=== PATIENT | female | born 1990 | race Caucasian/White ===

== ENCOUNTER 2024-04-25 09:17 | Emergency (ER) | payer MEDICAID, SELFPAY ==
[2024-04-25 09:25] VITALS: BP 118/81; PULSE 87; RESP 18; TEMP 37.2; O2SAT 98; BMI 28.3
--- NOTE | 2024-04-25 09:29 | XR_ITS ---
Examination: Right knee 4 views Technique: AP oblique lateral axial right knee 4 views Exam date and time: April 25, 2024 0941 hrs. Indications: Patient fell one week ago with injury to the knee, knee pain Findings: No acute fracture No dislocation No foreign body Impression: No acute fracture
[2024-04-25] MEDS: KETOROLAC INJ 30 MG/ML VIAL IM (09:49)
--- NOTE | 2024-04-25 10:34 | EDNOTE_ITS ---
<Statement entered by Nora Christopher MD - 04/26/24 11:46> As co-signing physician, I was present and available for consult prn. I concur with the plan and care as documented by the midlevel provider. Lower Extremity Injury RME/HPI General Chief Complaint: Extremity Injury, Lower Stated Complaint: right knee pain / swelling Time Seen by Provider: 04/25/24 09:19 Arrival date/time: 04/25/24 09:17 33-year-old female with prior knee injury presents emergency department with complaints of injuring her right knee Limitations: no limitations Related Data Home Medications ?Medication ?Instructions ?Recorded ?Confirmed prenat.vits,roberto,[id number] 1 tab PO QDAY 04/24/18 Previous Rx's ?Medication ?Instructions ?Recorded acetaminophen 650 mg 650 mg PO Q8H PRN fever or pain 07/05/18 tablet,extended release #30 tabs amoxicillin 500 mg capsule 500 mg PO BID #20 caps 07/05/18 ibuprofen 600 mg tablet 600 mg PO Q6H #30 tabs 04/25/24 Allergies Allergy/AdvReac Type Severity Reaction Status Date / Time No Known Allergies Allergy Verified 04/25/24 09:18 Review of Systems Review of Systems Systems Reviewed: All systems reviewed, normal except as documented Constitutional Constitutional: Reports system reviewed and no additional complaints, except as documented, Denies fever(s) and Denies headache(s) Eyes Eyes: Reports system reviewed and no additional complaints, except as documented and Denies blurry vision ENT Ears, Nose, Mouth, and Throat: Reports system reviewed and no additional com plaints, except as documented, Denies headache(s), Denies nasal congestion and Denies nasal discharge Cardiovascular Cardiovascular: Reports system reviewed and no additional complaints, except as documented, Denies chest pain and Denies dyspnea Respiratory Respiratory: Reports system reviewed and no additional complaints, except as documented, Denies chest congestion, Denies cough and Denies dyspnea Gastrointestinal Gastrointestinal: Reports system reviewed and no additional complaints, except as documented and Denies abdominal pain Musculoskeletal Musculoskeletal: Reports system reviewed and no additional complaints, except as documented, Reports arthralgias, Denies numbness, Reports stiffness and Denies tingling Integumentary/Breasts Skin/Breast: Reports system reviewed and no additional complaints, except as documented and Denies rash Neurologic Neurologic: Reports system reviewed and no additional complaints, except as documented, Reports as per HPI, Denies headache(s), Denies numbness and Denies tingling Past Medical History Past Medical History CARDIAC: Negative Congestive Heart Failure RESPIRATORY: Negative Chronic Obstructive Pulmonary Disease (COPD) GENITOURINARY: Negative Renal Disease ENDOCRINE: Negative Diabetes Mellitus Type 1 or Diabetes Mellitus Type 2 Social History SMOKING STATUS: Never smoker ED Exam General Limitations: Present no limitations General appearance: Present alert and in no apparent distress Head Head exam: Present atraumatic Eye Eye exam: Present normal appearance, PERRL and EOMI; Absent conjunctival injection ENT ENT exam: Present normal exam, normal oropharynx and mucous membranes moist Neck Neck exam: Present normal inspection, full ROM and trachea midline Chest Chest inspection: Present normal inspection and symmetric chest wall rise Respiratory Respiratory exam: Present normal lung sounds bilaterally; Absent respiratory distress Cardiovascular Cardiovascular exam: Present regular rate, normal rhythm and normal heart sounds Abdominal Exam Abdominal exam: Present soft and normal bowel sounds; Absent distention, tenderness, guarding, rebound or rigidity Extremities Exam Extremities exam: Present full ROM, tenderness (Right knee pain), normal capillary refill and joint swelling; Absent pedal edema or calf tenderness Back Exam Back exam: Present normal inspection and full ROM Neurological Exam Neurological exam: Present alert, oriented X3 and CN II-XII intact Psychiatric Psychiatric exam: Present normal affect and normal mood Skin Skin exam: Present warm, dry, intact and normal color Course Quality Measures none Orders Category Date Time Status XR knee comp RT 4V Stat Exams 04/25/24 09:29 Completed Ketorolac Inj [Toradol Inj] Med 04/25/24 09:30 Discontinued 30 mg IM X1 ONE Vital Signs Vital signs: Vital Signs Temperature 98.9 F 04/25/24 09:25 Pulse Rate 87 04/25/24 09:25 Respiratory Rate 18 04/25/24 09:25 Blood Pressure 118/81 04/25/24 09:25 Pulse Oximetry (%) 98 04/25/24 09:25 Oxygen Delivery Method Room Air 04/25/24 09:25 O2 saturation 98% on room air within normal limit Extremity Injury, Lower MDM Narrative MDM Narrative:: 33-year-old female with prior knee injury presents emergency department with complaints of injuring her right knee On exam patient is mild tenderness of the right knee X-ray of right knee obtained no acute emergent findings noted Explained to the patient she needs to follow with department care doctor and request a MRI for further evaluation for possible ligamentous tear Patient discharged home in no distress to follow-up with primary care doctor in the next 24 to 48 hours and for any worsening symptoms to return to the ER immediately Patient data External records reviewed:: [facility] previous records Clinical information provided by:: patient Social determinants that could affect healthcare access:: none Patient has the following chronic illnesses:: See history How is presenting disease/condition affected by chronic disease/condition?: uneffected by Evaluation data The following diagnostics were reviewed and interpreted by me:: radiology exam(s) Lab and/or radiology exams considered but not ordered:: Radiology obtain Interpretation Summary: Reviewed by me Medications / Prescriptions Medications or Prescriptions considered but not ordered:: Given Medication administrations:: Medication Administration History Discontinued Medications Ketorolac Tromethamine (Ketorolac Inj 30 Mg/Ml Vial) 30 mg IM X1 ONE Stop: 04/25/24 09:31 Last Admin: 04/25/24 09:49 Dose: 30 mg Documented By: [facility] Comments: scanner broken Given Consultations Consultation(s) initiated? (list below): No Diagnosis Extremity Injury, Lower Differential Diagnosis: acute internal derangement of knee and other (Knee sprain, knee fracture) Most likely diagnosis given after review of the tests above:: Knee sprain Admission Indicated Admission indicated?: not indicated Admission Request Was there a request for admission?: No Disposition Plan Disposition Plan: Discharge Discharge Attestation Discharge Attestation: The patient and all family members were given an opportunity to ask questions and understood the discharge instructions. Discharge instructions specifically effects, indications for sooner follow up or return to the emergency department, and the expected course of current diagnosis. Patient condition: Stable Discharge Plan Plan Patient Disposition: HOME (Self Care) Disposition Comment: Stable Prescriptions/Referrals Prescriptions/Med Rec: New ibuprofen 600 mg tablet 600 mg PO Q6H Qty: 30 0RF No Action prenat.vits,roberto,[id number] tablet 1 tab PO QDAY acetaminophen 650 mg tablet extended release 650 mg PO Q8H PRN (Reason: fever or pain) Qty: 30 0RF Rx Instructions: swallow whole; do not crush, chew, break, dissolve, cut, or open amoxicillin 500 mg capsule 500 mg PO BID Qty: 20 0RF Referrals: Houston Draper PA-C [Primary Care Provider] - 04/27/24 Problem List Clinical Impression: Acute pain of right knee Patient/Caregiver Discharge Instructions Education Materials: ED Arthralgia Additional Instructions: Please follow-up with her PCP if your pain persist she may need an MRI for further evaluation Print Language: Turkmen Stand Alone Forms: Maria Elena Award Info., Work/School Release, Patient Portal Info Letter PA/PHYSICIAN ADVISOR Supervising Physician PA/PHYSICIAN ADVISOR Supervising Physician: Dr. Christopher
== END 2024-04-25 10:45 | disposition home or self-care (01) ==
PROVIDERS: Emergency Provider Emergency Medicine; PCP Physician Assistant Medical
DX: M25.561 Pain in right knee (principal)
CPT/HCPCS: 73564; 96372; 99283; J1885

== ENCOUNTER 2024-07-15 10:50 | Emergency (ER) | payer MEDICAID, SELFPAY ==
--- NOTE | 2024-07-15 11:27 | EDNOTE_ITS ---
ED Headache RME/HPI General Chief Complaint: Headache Stated Complaint: MIGRAINE X3 DAYS Time Seen by Provider: 07/15/24 11:00 Source: patient Arrival date/time: 07/15/24 10:50 Mode of arrival: ambulatory Limitations: no limitations RME / HPI RME / HPI Narrative: Dr. Mansifeld? Main ED Evaluation: 33-year-old female with a history of migraines since childhood, presenting to the Emergency Department with complaints of a recurrent migraine headache. The patient was evaluated at urgent care in [place] yesterday, where she received two injections for pain relief. She was advised to seek emergency care if her symptoms returned after the medication wore off. She now presents to the ED as her headache has recurred following initial symptom relief. She describes the headache as a stabbing pain localized to her temples and behind her eyes. She does not specify any associated aura, photophobia, phonophobia, or nausea/vomiting at this time. No reported recent trauma, fever, neck stiffness, or neurological deficits. Related Data Home Medications ?Medication ?Instructions ?Recorded ?Confirmed prenat.vits,roberto,[id number] 1 tab PO QDAY 04/24/18 Previous Rx's ?Medication ?Instructions ?Recorded acetaminophen 650 mg 650 mg PO Q8H PRN fever or p ain 07/05/18 tablet,extended release #30 tabs amoxicillin 500 mg capsule 500 mg PO BID #20 caps 09/18 ibuprofen 600 mg tablet 600 mg PO Q6H #30 tabs 04/25 Allergies Allergy/AdvReac Type Severity Reaction Status Date / Time No Known Allergies Allergy Verified 07/15/24 10:52 Review of Systems Review of Systems Systems Reviewed: All systems reviewed, normal except as documented Past Medical History Past Medical History CARDIAC: Negative Congestive Heart Failure RESPIRATORY: Negative Chronic Obstructive Pulmonary Disease (COPD) GENITOURINARY: Negative Renal Disease ENDOCRINE: Negative Diabetes Mellitus Type 1 or Diabetes Mellitus Type 2 Social History SMOKING STATUS: Current every day smoker ED Exam General Limitations: Present no limitations General appearance: Present alert and in no apparent distress Head Head exam: Present atraumatic Eye Eye exam: Present normal appearance, PERRL and EOMI; Absent conjunctival injection ENT ENT exam: Present normal exam, normal oropharynx and mucous membranes moist Neck Neck exam: Present normal inspection, full ROM and trachea midline Chest Chest inspection: Present normal inspection and symmetric chest wall rise Respiratory Respiratory exam: Present normal lung sounds bilaterally; Absent respiratory distress Cardiovascular Cardiovascular exam: Present regular rate, normal rhythm and normal heart sounds Abdominal Exam Abdominal exam: Present soft and normal bowel sounds; Absent distention, tenderness, guarding, rebound or rigidity Extremities Exam Extremities exam: Present full ROM, tenderness (Right knee pain), normal capillary refill and joint swelling; Absent pedal edema or calf tenderness Back Exam Back exam: Present normal inspection and full ROM Neurological Exam Neurological exam: Present alert, oriented X3 and CN II-XII intact Psychiatric Psychiatric exam: Present normal affect and normal mood Skin Skin exam: Present warm, dry, intact and normal color Course Quality Measures none Vital Signs Vital signs: Vital Signs Temperature 98.4 F 07/15/24 11:43 Pulse Rate 69 07/15/24 11:43 Respiratory Rate 18 07/15/24 11:43 Blood Pressure 113/63 07/15/24 11:43 Pulse Oximetry (%) 99 07/15/24 11:43 Oxygen Delivery Method Room Air 07/15/24 11:43 Headache MDM Narrative MDM Narrative:: Scribe Attestation: I, Sandee Paiz, am scribing for and in the presence of Dr. Mansfield. Provider Notation: Although this document has been carefully reviewed, there may still be some phonetic and other typographical errors. These errors are purely grammatical due to imperfections in the software program and should not be construed in any way to compromise the substance of the patient's medical care during this visit. Patient data External records reviewed:: [facility] previous records Clinical information provided by:: patient Social determinants that could affect healthcare access:: none Patient has the following chronic illnesses:: see PMH How is presenting disease/condition affected by chronic disease/condition?: uneffected by Evaluation data The following diagnostics were reviewed and interpreted by me:: other (specify) (na) Lab and/or radiology exams considered but not ordered:: na Interpretation Summary: na Medications / Prescriptions Medications or Prescriptions considered but not ordered:: na Medication administrations:: na Consultations Consultation(s) initiated? (list below): No Diagnosis Differential diagnosis headache: migraine, headache and sinusitis Most likely diagnosis given after review of the tests above:: Tension headache TMJ syndrome Admission Indicated Admission indicated?: not indicated Admission Request Was there a request for admission?: No Disposition Plan Disposition Plan: Discharge Discharge Attestation Discharge Attestation: The patient and all family members were given an opportunity to ask questions and understood the discharge instructions. Discharge instructions specifically effects, indications for sooner follow up or return to the emergency department, and the expected course of current diagnosis. Patient condition: Stable Discharge Plan Plan Patient Disposition: HOME (Self Care) Patient condition on transfer: Stable Prescriptions/Referrals Prescriptions/Med Rec: No Action prenat.vits,roberto,[id number] tablet 1 tab PO QDAY acetaminophen 650 mg tablet extended release 650 mg PO Q8H PRN (Reason: fever or pain) Qty: 30 0RF Rx Instructions: swallow whole; do not crush, chew, break, dissolve, cut, or open amoxicillin 500 mg capsule 500 mg PO BID Qty: 20 0RF ibuprofen 600 mg tablet 600 mg PO Q6H Qty: 30 0RF Problem List Clinical Impression: Tension headache, TMJ syndrome Patient/Caregiver Discharge Instructions Print Language: Prydeinig Stand Alone Forms: Maria Elena Award Info., Patient Portal Info Letter
[2024-07-15 11:43] VITALS: BP 113/63; PULSE 69; RESP 18; TEMP 36.9; O2SAT 99; BMI 25.9
[2024-07-15] MEDS: KETOROLAC INJ 60 MG/2 ML VIAL 30 MG IM (14:44)
== END 2024-07-15 14:47 | disposition home or self-care (01) ==
LOC: SERX 12:32
PROVIDERS: Emergency Provider Family Medicine; PCP Physician Assistant Medical
DX: G44.209 Tension-type headache, unspecified, not intractable (principal); M26.609 Unspecified temporomandibular joint disorder, unspecified side
CPT/HCPCS: 96372; 99283; J1885

== ENCOUNTER 2024-09-13 06:21 | Emergency (ER) | payer MEDICAID, SELFPAY ==
[2024-09-13 06:23] VITALS: BMI 27.2
[2024-09-13 06:34] VITALS: BP 122/87; PULSE 102; RESP 17; TEMP 37.2; O2SAT 96
--- NOTE | 2024-09-13 06:42 | EDNOTE_ITS ---
<Statement entered by Nora Christopher MD - 09/13/24 09:00> As co-signing physician, I was present and available for consult prn. I concur with the plan and care as documented by the midlevel provider. Upper Respiratory Inf. RME/HPI General Chief Complaint: Fever Stated Complaint: FEVER BODY ACHES Time Seen by Provider: 09/13/24 06:31 Arrival date/time: 09/13/24 06:21 33-year-old female presents emergency department today for complaint of generalized body aches fever and mild cough. Patient reports ongoing for last couple of days. Patient questing a note for work. Limitations: no limitations Related Data Home Medications ?Medication ?Instructions ?Recorded ?Confirmed prenat.vits,roberto,[id number] 1 tab PO QDAY 04/24/18 Previous Rx's ?Medication ?Instructions ?Recorded acetaminophen 650 mg 650 mg PO Q8H PRN fever or p ain 07/05/18 tablet,extended release #30 tabs amoxicillin 500 mg capsule 500 mg PO BID #20 caps 09/18 ibuprofen 600 mg tablet 600 mg PO Q6H #30 tabs 04/25 ibuprofen 600 mg tablet 600 mg PO Q6H #30 tabs 09/13 Allergies Allergy/AdvReac Type Severity Reaction Status Date / Time No Known Allergies Allergy Verified 09/13/24 06:26 Review of Systems Review of Systems Systems Reviewed: All systems reviewed, normal except as documented Constitutional Constitutional: Reports system reviewed and no additional complaints, except as documented, Reports body ache(s), Reports chills, Reports fever(s) and Reports headache(s) Eyes Eyes: Reports system reviewed and no additional complaints, except as documented and Denies blurry vision ENT Ears, Nose, Mouth, and Throat: Reports system reviewed and no additional complaints, except as documented, Reports headache(s), Reports nasal congestion and Reports nasal discharge Cardiovascular Cardiovascular: Reports system reviewed and no additional complaints, except as documented, Denies chest pain and Denies dyspnea Respiratory Respiratory: Reports system reviewed and no additional complaints, except as documented, Reports chest congestion, Reports cough and Denies dyspnea Gastrointestinal Gastrointestinal: Reports system reviewed and no additional complaints, except as documented and Denies abdominal pain Integumentary/Breasts Skin/Breast: Reports system reviewed and no additional complaints, except as documented and Denies rash Neurologic Neurologic: Reports system reviewed and no additional complaints, except as documented, Reports as per HPI and Reports headache(s) Past Medical History Past Medical History CARDIAC: Negative Congestive Heart Failure RESPIRATORY: Negative Chronic Obstructive Pulmonary Disease (COPD) GENITOURINARY: Negative Renal Disease ENDOCRINE: Negative Diabetes Mellitus Type 1 or Diabetes Mellitus Type 2 Social History SMOKING STATUS: Former smoker ED Exam General Limitations: Present no limitations General appearance: Present alert and in no apparent distress Head Head exam: Present atraumatic, normocephalic and normal inspection Eye Eye exam: Present normal appearance, PERRL and EOMI; Absent conjunctival injection ENT ENT exam: Present normal exam, normal oropharynx and mucous membranes moist Neck Neck exam: Present normal inspection, full ROM and trachea midline Chest Chest inspection: Present normal inspection and symmetric chest wall rise Respiratory Respiratory exam: Present normal lung sounds bilaterally; Absent respiratory di stress, wheezes, stridor or accessory muscle use Cardiovascular Cardiovascular exam: Present regular rate, normal rhythm and normal heart sounds Abdominal Exam Abdominal exam: Present soft and normal bowel sounds; Absent distention, tenderness, guarding, rebound or rigidity Extremities Exam Extremities exam: Present normal inspection and full ROM Back Exam Back exam: Present normal inspection and full ROM Neurological Exam Neurological exam: Present alert, oriented X3 and CN II-XII intact Psychiatric Psychiatric exam: Present normal affect and normal mood Skin Skin exam: Present warm, dry, intact and normal color Course Quality Measures none Vital Signs Vital signs: Vital Signs Temperature 99.0 F 09/13/24 06:34 Pulse Rate 102 H 09/13/24 06:34 Respiratory Rate 17 09/13/24 06:34 Blood Pressure 122/87 H 09/13/24 06:34 Pulse Oximetry (%) 96 09/13/24 06:34 Oxygen Delivery Method Room Air 09/13/24 06:34 O2 saturation 96% room air within normal limits Upper Respiratory Infection MDM Narrative MDM Narrative:: 33-year-old female presents emergency department today for complaint of generalized body aches fever and mild cough. Patient reports ongoing for last couple of days. Patient questing a note for work. On exam patient does not appear ill or toxic in no acute distress Lab work and imaging obtained no acute emergent findings noted Symptoms are highly consistent with viral illness Patient discharged home in no distress to follow-up with primary care doctor in the next 24 to 48 hours and for any worsening symptoms to return to the ER immediately Patient data External records reviewed:: [facility] previous records Clinical information provided by:: patient Social determinants that could affect healthcare access:: none Patient has the following chronic illnesses:: None How is presenting disease/condition affected by chronic disease/condition?: no chronic disease Evaluation data The following diagnostics were reviewed and interpreted by me:: lab results Lab and/or radiology exams considered but not ordered:: Labs obtain Interpretation Summary: Reviewed by me Medications / Prescriptions Medications or Prescriptions considered but not ordered:: Given Medication administrations:: Given Consultations Consultation(s) initiated? (list below): No Diagnosis Upper Respiratory Differential Diagnosis: upper respiratory infection, sinusitis and viral infection Most likely diagnosis given after review of the tests above:: Viral illness Admission Indicated Admission indicated?: not indicated Admission Request Was there a request for admission?: No Disposition Plan Disposition Plan: Discharge Discharge Attestation Discharge Attestation: The patient and all family members were given an opportunity to ask questions and understood the discharge instructions. Discharge instructions specifically effects, indications for sooner follow up or return to the emergency department, and the expected course of current diagnosis. Patient condition: Stable Discharge Plan Plan Patient Disposition: HOME (Self Care) Discharge Disposition comment: Stable Prescriptions/Referrals Prescriptions/Med Rec: New ibuprofen 600 mg tablet 600 mg PO Q6H Qty: 30 0RF No Action prenat.vits,roberto,[id number] tablet 1 tab PO QDAY acetaminophen 650 mg tablet extended release 650 mg PO Q8H PRN (Reason: fever or pain) Qty: 30 0RF Rx Instructions: swallow whole; do not crush, chew, break, dissolve, cut, or open amoxicillin 500 mg capsule 500 mg PO BID Qty: 20 0RF ibuprofen 600 mg tablet 600 mg PO Q6H Qty: 30 0RF Problem List Clinical Impression: Viral infection Patient/Caregiver Discharge Instructions Education Materials: ED Viral Syndrome (Adult) Additional Instructions: Please follow up with your primary care doctor in the next 24-48hrs for any worsening symptoms return here immediately Print Language: Angolan Stand Alone Forms: Maria Elena Award Info., Work/School Release, Patient Portal Info Letter PA/ZELALEM Supervising Physician PA/ZELALEM Supervising Physician: dr christopher
== END 2024-09-13 06:54 | disposition home or self-care (01) ==
LOC: SERX 06:44
PROVIDERS: Emergency Provider Emergency Medicine; PCP Physician Assistant Medical
DX: B34.9 Viral infection, unspecified (principal)
CPT/HCPCS: 87400; 87811; 99281